=== PATIENT | male | born 1945 | race Caucasian/White ===

== ENCOUNTER 2019-06-23 22:24 | Inpatient (IN) | payer MEDICARE, BC ==
[~2019-06-23] VITALS: Ht 177.8 cm; Wt 109.4 kg
[2019-06-23] MEDS ORDERED: DONEPEZIL HCL10 MG PO (22:39)
[2019-06-23] MEDS ORDERED: FERROUS SULFAT325 MG PO (22:40)
[2019-06-23] MEDS ORDERED: NEURONTIN 300300 MG PO (22:40)
[2019-06-23] MEDS ORDERED: SCOT-TUSSI10 MG/5 ML PO (22:42)
[2019-06-23] MEDS ORDERED: MUCINEX600 MG PO ×2 (22:43→22:44)
[2019-06-23] MEDS ORDERED: IPRAT-ALBUT 0.5-3 ML UPD ×2 (22:46→22:47)
[2019-06-23] MEDS ORDERED: HYTRIN5 MG PO (22:48)
[2019-06-23] MEDS ORDERED: ZOLOFT50 MG PO (22:48)
[2019-06-23] MEDS ORDERED: NAMENDA10 MG PO (22:48)
[2019-06-23] MEDS ORDERED: DIOVAN80 MG PO (22:49)
--- NOTE | 2019-06-23 23:41 | NUR ---
PATIENT ARRIVED AT 2230 FROM [facility] FOR SEXUALLY INAPRPIATE BEHAVIOR WITH STAFF AND RESIDENTS, VS T 97.1, BP 124/64, P 67, R 22, O2 98%, WT 233.2,. PATIENT IS ALERT AND ORIENTED TO PERSON, PLACE AND TIME, PATIENT STATES THAT THE STAFF AT [facility] IS LIEING ON HIM, PATIENT HAS BEEN SEXUALLY INAPP. WITH FEMALE STAFF HERE IN ALF, PATIENT IS ATTENTION SEEKING AND BOUNDARY TESTING FROM THE MOMENT HE ARRIVED ON THE UNIT. DEMANDING RIBS AND ICE CREAM, ICE WATER AND ANYTHING ELSE HE COULD THINK OF, PATIENT DID SIGN ADMISSION PAPERWORK AND ANSWERS ALL QUESTIONS FOR ADMIT FROM THIS MALE NURSE. PHYSICIAN AWARE OF ADMIT, TANNER PINON CALLED AND CODE WORD IS 'CURLY' CODE STATUS IS DNR PER [facility]. WILL CONTINUE TO MONITOR.
[2019-06-24 01:20] VITALS: BP 124/64; BMI 33.5
[2019-06-24 02:00] LABS: APPEARANCE CLEAR (CLEAR); BILIRUBIN NEGATIVE (NEGATIVE); COLOR YELLOW (YELLOW); GLUCOSE NEGATIVE (NEGATIVE); KETONE NEGATIVE (NEGATIVE); NITRITE NEGATIVE (NEGATIVE); PROTEIN NEGATIVE (NEGATIVE); SPECIFIC GRAVITY 1.015 (1.005-1.020); UROBILINOGEN NORMAL (NORMAL)
[2019-06-24 08:24] LABS: ALBUMIN 3.3 g/dL (3.4-5.0); ANION GAP 10.7 mmol/L (8-16); BILIRUBIN - TOTAL 0.37 mg/dL (0.2-1.3); CARBON DIOXIDE 26.1 mmol/L (21.0-32.0); CHOL - HDL RATIO 4.7 ratio (2.3-4.9); CREATININE - SERUM 1.3 mg/dL (0.6-1.3); HEMATOCRIT 35.9 % (42.0-54.0); HEMOGLOBIN 12.7 g/dL (13.5-17.5); LDL-HDL RATIO 2.9 ratio (1.5-3.5); LYMPHOCYTES 33.3 % (15-50); MCH 32.2 pg (26.0-34.0); MCHC 35.4 g/dL (31.0-37.0); MCV 90.9 fL (80.0-100.0); MEAN PLATELET VOLUME 10.4 fL (7.4-10.4); NEUTROPHILS 56.7 % (40-80); PLATELET COUNT 143 10x3/uL (130-400); POTASSIUM - SERUM 3.8 mmol/L (3.5-5.1); PROTEIN - SERUM 6.8 g/dL (6.4-8.2); RBC 3.95 10x6/uL (4.20-6.10); THYROID STIMULATING HORMONE 0.97 uIU/mL (0.36-3.74); WBC 7.7 10x3/uL (4.8-10.8)
[2019-06-24 09:53] VITALS: BP 133/55
--- NOTE | 2019-06-24 11:37 | NUR ---
B) The patient is awake and alert, he ambulates independently. He is conversing with another patient in the day room with staff present he has not been showing any sexually inappropriate behavior at this time. I) Provide prescribed meds. R) The patient is compliant with meds. P) Continue POC.
[2019-06-24 14:34] VITALS: Ht 177.8 cm; Wt 109.4 kg
--- NOTE | 2019-06-24 17:41 | NUR ---
PT DID NOT MAKE IT TO THE RESTROOM THIS SHIFT. SOILED CLOTHES AND TOLD NURSE AND TECH THAT HE COULD NOT CLEAN HIMSELF UP. TECH AND NURSE ENCOURAGED PT ON MULTIPLE TRYS TO CLEAN HIMSELF UP. PT EVENTUALLY DID CLEAN HIMSELF UP. NO MORE EPISODES NOTED AT THIS TIME.
--- NOTE | 2019-06-24 21:50 | NUR ---
B.) PT IS ALERT AND ORIENTED X4. PT IS ABLE TO AMBULATE WITHOUT ASSISTANCE. HE IS ABLE TO MAKE HIS NEEDS KNOWN. I.) REDIRECT IF NEEDED. R.) EASY TO REDIRECT. P.) WILL CONTINUE TO MONITOR.
[2019-06-25 02:34] VITALS: BP 131/63
[2019-06-25 07:12] LABS: RAPID PLASMA REAGIN Non Reactive (Non Reactive)
[2019-06-25 09:03] VITALS: BP 144/62
--- NOTE | 2019-06-25 12:38 | PSY ---
PATIENT NAME:JANELL PINON MEDICAL RECORD: [id number] : 47 LOCATION:[facility] ADMISSION DATE: 06/23/19 ACCOUNT: [id number] PSYCHIATRIC EVALUATION DATE OF EVALUATION: 06/24/19 IDENTIFYING DATA: The patient is 74 years old and he is admitted to the hospital on a voluntary basis. CHIEF COMPLAINT: Sexually inappropriate behavior. HISTORY OF PRESENT ILLNESS: The patient lives in the [facility] in [place], [place]. They referred him to us because of sexually inappropriate behavior with staff and residents. At this point, I do not have information about what he did specifically and when asked about this in what would say as nonjudgmental and neutral manner as possible, he becomes angry and says he has never done anything inappropriate and that they are lying about him at the [facility]. The patient cannot tell me specifically who is lying and even more importantly why they would make up such lies about him, but he angrily insists that they are doing so. Interestingly, when he arrived here last evening about 10:30, he was sexually inappropriate, demanding, and agitated. The patient does have a history of bipolar disorder, which he is not forthcoming and giving details on. He apparently is mad because I asked about the sexually inappropriate behavior. He denies that he would hurt himself or others. He denies psychotic symptoms. PAST MEDICAL HISTORY: Significant for hypertension, anemia. PAST PSYCHIATRIC HISTORY: Significant for an established diagnosis of dementia as well as a reported history of bipolar disorder. FAMILY HISTORY: Unknown. SOCIAL HISTORY: The patient is and has adult children. He denies a history of drug or alcohol abuse. He denies cigarette smoking. MENTAL STATUS EXAMINATION: The patient is awake, alert and oriented to person and place and somewhat to time and situation. His mood is angry. His affect is constricted. Thought processes are circumstantial and at times actively disorganized. His memory, concentration, and abstraction abilities could not be tested because of his anger, but they are deemed to be impaired based upon the context of the interaction. He does again denied that he is wanting to hurt himself or others as well as auditory or visual hallucinations. ASSETS: Supportive family members. LIABILITIES: Limited insight. DIAGNOSTIC IMPRESSION: AXIS I: 1. Major neurocognitive disorder of the Alzheimer's type with behavioral disturbances. 2. Bipolar disorder, manic by history. AXIS II: Deferred. AXIS III: Hypertension and anemia. AXIS IV: Moderate psychosocial stressors. AXIS V: Global assessment of functioning is 40. PLAN: At this time, the patient is admitted to the hospital secondary to sexually inappropriate behavior at the [facility]. The behaviors are likely related to a combination of him being disinhibited by a dementing illness as well as a probable underlying mood disorder. He will be treated with memory enhancing medications as well as mood stabilizing medications as deemed appropriate based upon how things evolve as his hospital stay here progresses. TRANSINT:[id number] Voice Confirmation ID: [id number] DOCUMENT ID: [id number] TYLER RANDOLPH MD at 1238 CC: [id number] DICTATION DATE: 06/24/19 1545 GLASS CALIBRATOR: 06/24/19 1638 ADM IN [facility] [address] [id number]
--- NOTE | 2019-06-25 13:31 | NUR ---
The patient is awake and alert, he has not shown any sexually inappropriate behavior he took a nap in the day room. He is sitting up socializing with patients. He is able to ambulate independently. Provide prescribed meds. The patient is compliant with meds and unit milieu.
[2019-06-25 20:10] VITALS: BP 116/48
--- NOTE | 2019-06-25 23:00 | NUR ---
B.) PT IS SEXUALLY INAPPROPRIATE WITH STAFF AND PEERS. HE IS AGGITATING OTHER PATIENTS AND ATTEMPTS TO SOWING DISCHORD WITH PEERS. PHYSICALLY COMBATIVE WITH STAFF. INTRUSIVE WITH STAFF. OVERLY DRAMATIC AND NARCISSISTIC. I.) PROVIDED PM MEDICATIONS. REDIRECT OFTEN. DECREASE STIMULATION. R.) COMPLIANT WITH MEDICATIONS. RESISTS REDIRECTION. P.) WILL CONTINUE TO MONITOR.
--- NOTE | 2019-06-26 00:44 | NUR ---
PT IS IN HIS ROOM WITH THE DOOR SHUT, TALKING TO PEOPLE THAT ARE NOT PRESENT. PT DIFFICULT TO REDIRECT. WILL CONTINUE TO MONITOR.
[2019-06-26 08:00] VITALS: BP 120/64
--- NOTE | 2019-06-26 08:36 | NUR ---
PT IS VERY SEXUALLY INAPPROPRIATE WITH STAFF AND PEERS. HE IS AGITATING OTHER PTS AND ATTEMPTS TO BE LITTLE STAFF AND PEERS. PHYSICALLY COMBATIVE WITH STAFF. INTRUSIVE WITH STAFF. PT STATES " YOU HAVE A NICE RACK TO THIS NURSE." NURSE EXPLAINED THAT IS SEXUALLY INAPPROPRIATE, PT STATED " I WILL SHOW YOU SEXUALLY INAPPROPRIATE." PT HARD TO REDIRECT AT THIS TIME. PT CALLING OTHER PTS STUPID AND HETTING THE WHOLE UNIT WORKED UP. HALDOL 2MG IM AND ATIVAN 0.5 MG IM GIVEN PER ORDER. WILL CONTINUE TO MONITOR.
--- NOTE | 2019-06-26 09:30 | NUR ---
PRN MEDS EFFECTIVE AT THIS TIME. WILL CONTINUE TO MONITOR.
--- NOTE | 2019-06-26 11:48 | PN ---
PATIENT:JANELL PINON MEDICAL RECORD: [id number] LOCATION:[facility] ADMISSION DATE: 06/23/19 PROGRESS NOTE DATE OF SERVICE: 06/25/2019 SUBJECTIVE: The patient's case was discussed with staff. He has no new complaint. OBJECTIVE: The patient is in good behavioral control. He is impaired cognitively more than I anticipated. He has had no sexually inappropriate behavior today. ASSESSMENT: Dementia. PLAN: The patient has some degree of anxiety. I am going to treat him with BuSpar on a scheduled basis to address this. His long-term prognosis is guarded. TRANSINT:[id number] Voice Confirmation ID: [id number] DOCUMENT ID: [id number] TYLER RANDOLPH MD at 1148 CC: [id number] DICTATION DATE: 06/25/19 1353 DIRECTOR PUBLIC: 06/25/19 1436 ADM IN [place] [id number] [place] [id number]
[2019-06-26 20:00] VITALS: BP 144/69
--- NOTE | 2019-06-27 01:58 | NUR ---
B.) PT IS ALERT AND ORIENTED TO SELF. HE HAS POOR INSIGHT INTO HIS SITUATION. HE APPEARS WITHDRAWN. HE IS RECEIVED IN THE DAYROOM ASLEEP WITH NO SIGNS OF DISTRESS. HE IS ABLE TO MAKE HIS NEEDS KNOWN. I.) PROVIDED PM MEDICATIONS. R.) COMPLIANT WITH ALL MEDICATIONS. P.) WILL CONTINUE TO MONITOR.
--- NOTE | 2019-06-27 07:30 | NUR ---
Rec'd pt sitting in chair by nurses station. Awake and alert x 3. Calm and cooerative with assessment. Prescribed meds provided as ordered. med complaint. No behaviors noted at this time. Will cpoc.
[2019-06-27 10:52] VITALS: BP 115/56
--- NOTE | 2019-06-27 22:49 | NUR ---
RECEIVED IN PATIENT ROOM. GETTING READY FOR BED. CALM AND COOPERATIVE WITH CARE AND ASSESSMENT. NO SEXUALLY INAPPROPRIATE BEHAVIOR THIS EVENING. REDIRECT AND REORIENT NEEDED. RESTING IN BED WITH EYES CLOSED AT THIS TIME. CONTINUE PLAN OF CARE.
[2019-06-28 00:03] VITALS: BP 136/60
[2019-06-28 08:24] VITALS: BP 98/65
--- NOTE | 2019-06-28 13:49 | NUR ---
PT IS AWAKE AND ALERT TO PERSON ONLY. CALM AND COOPERATIVE WITH ASSESSMENT. PRESCRIBED MEDS PROVIDED ORDERED. MED COMPLIANT. REDIRECT AND REORIENT NEEDED. FALL PRECAUTIONS IN PLACE. WILL CPOC.
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
[2019-06-28 20:48] VITALS: BP 134/68
--- NOTE | 2019-06-28 21:13 | NUR ---
RECEIVED IN PATIENT ROOM. GETTING READY FOR BED. CALM AND COOPERATIVE WITH CARE AND ASSESSMENT. NO SEXUALLY INAPPROPRIATE BEHAVIORS. REDIRECT AND REORIENT NEEDED. RESTING IN BED WITH EYES OPEN AT THIS TIME. CONTINUE PLAN OF CARE.
[2019-06-29 07:00] VITALS: BP 174/87
--- NOTE | 2019-06-29 08:21 | NUR ---
REC'D PT SITTING IN HALLWAY SOCIALIZING WITH PEERS. CALM AND COOPERATIVE WITH ASSESSMENT. PRESCRIBED MEDS PROVIDED ORDERED. MED COMPLIANT. NO BEHAVIORS NOTED AT THIS TIME. REDIRECT AND REORIENT NEEDED. FALL PRECAUTIONS IN PLACE. WILL CPOC.
--- NOTE | 2019-06-29 13:45 | PN ---
PATIENT:JANELL PINON MEDICAL RECORD: [id number] LOCATION:[facility] ADMISSION DATE: 06/23/19 PROGRESS NOTE DATE OF SERVICE: 06/28/2019 SUBJECTIVE: The patient's case was discussed with staff. He has no new complaint. OBJECTIVE: The patient has not been sexually inappropriate or aggressive with staff. He is partially oriented. He has actually been pleasant and interactive. ASSESSMENT: Dementia. PLAN: Current medicines will be maintained. TRANSINT:[id number] Voice Confirmation ID: [id number] DOCUMENT ID: [id number] TYLER RANDOLPH MD at 1345 CC: [id number] DICTATION DATE: 06/28/191946 RISK CONSULTING TREASURY DIRECTOR: 06/28/192216 ADM IN [place] [address] [place] [address]
--- NOTE | 2019-06-29 15:39 | NUR ---
Nutrition Follow-up: Diet: Regular PO intake: ~68% x 9 meals Last BM: 06/25/19 x 4 days. Wt: 235# (06/26/19); Admit wt: 234# (06/24/19) Meds reviewed. Noted A1c of 6.3. Consider diabetic diet if blood sugar trending high. RD Following.
--- NOTE | 2019-06-29 18:08 | NUR ---
PT WAS VERY SEXUAL INAPPROPRIATE WITH STAFF AT THIS TIME. PT STATED "WELL IM GOING TO GIVE YOUR A SHOT." WANDERING, CLAPPING HANDS AND BEATING ON THE TABLE. UNABLE TO REDIRECT A PATIENT. ATIVAN 0.5 MG AND HALDOL 2 MG PO FOR ANXIETY AND INAPPROPRIATE BEHAVIOR. WILL REASSESS Q 1 HOUR FOR SAFETY.
--- NOTE | 2019-06-29 20:27 | NUR ---
RECEIVED IN PATIENT ROOM. RESTING IN BED WITH EYES OPEN. CALM AND COOPERATIVE WITH CARE AND ASSESSMENT. NO SEXUALLY INAPPROPRIATE BEHAVIOR THIS EVENING. REDIRECT AND REORIENT NEEDED. RESTING IN BED WITH EYES OPEN AT THIS TIME. CONTINUE PLAN OF CARE.
[2019-06-29 22:59] VITALS: BP 139/63
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
[2019-06-30 08:00] VITALS: BP 118/68
--- NOTE | 2019-06-30 08:55 | PN ---
PATIENT:JANELL PINON MEDICAL RECORD: [id number] LOCATION:[facility] ADMISSION DATE: 06/23/19 PROGRESS NOTE DATE OF SERVICE: 06/29/2019 SUBJECTIVE: The patient's case was discussed with staff. He has no new complaint. OBJECTIVE: The patient is in good behavioral control. He has poor insight about his condition. He has not been sexually inappropriate for the past 2 days. ASSESSMENT: No change in diagnoses. PLAN: Current medicines have been reviewed and will be maintained. If this level of improvement continues, I will transfer him back to the [facility]. TRANSINT:[id number] Voice Confirmation ID: [id number] DOCUMENT ID: [id number] TYLER RANDOLPH MD at 0855 CC: [id number] DICTATION DATE: 06/29/19 1634 NURSE EMERGENCY ROOM: 06/30/19 0833 ADM IN [place] [address] [place] [id number]
--- NOTE | 2019-06-30 11:44 | NUR ---
APPETITE GOOD FOR B'FAST, NO FURTHER EPISODES OF INAPPROPRIATE BEHAVIOR NOTED AT THIS TIME, PT CALM AND COOPERATIVE. MEDS ADMIN PER ORDERS WITH COMPLETE MED COMPLIANCE NTOED.
--- NOTE | 2019-06-30 19:22 | NUR ---
B) Patient is alert and oriented to person, place and time. Calm and cooperative this shift, I) administered scheduled medications as ordered, monitopred for safety R) Mediation compliant, resting quietly in his bed now, P) Continue plan of care.
--- NOTE | 2019-06-30 22:00 | NUR ---
RECEIVED IN DAYROOM. SITTING IN A RECLINING CHAIR WITH EYES CLOSED. RESPONDED TO TOUCH. CALM AND COOPERATIVE WITH CARE AND ASSESSMENT. NO SIGNS OF SEXUALLY INAPPROPRIATE BEVAVIOR THIS EVENING. REDIRECT AND REORIENT NEEDED. RESTING IN BED WITH EYES CLOSED AT THIS TIME. CONTINUE PLAN OF CARE
[2019-06-30 22:47] VITALS: BP 140/74
--- NOTE | 2019-07-01 10:00 | NUR ---
RECEIVED PT. IN DINING ROOM AT B'FAST, ALERT, CALM, COOPERATIVE, NO FURTHER EPISODES OF INAPPROPRIATE BEHAVIOR. MEDS ADMIN PER ORDERS WITH COMPLETE MED COMPLIANCE NOTED. CONT POC DIRECTED.
[2019-07-01 15:21] VITALS: BP 132/69
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
[2019-07-01 20:23] VITALS: BP 138/61
--- NOTE | 2019-07-01 23:22 | NUR ---
REC'D PATIENT SITTING IN THE DAYROOM. ALERT AND ORIENTED. POOR INTERACTION WITH OTHERS. APPROPRIATE RESPONSES WHEN TALKING WITH STAFF. ADMINISTER MEDS AND MONITOR COMPLIANCE. OBSERVE FOR SEXUALLY INAPPROPRIATE BEHAVIOR AND REDIRECT NEEDED. MED COMPLIANT. NO INAPPROPRIATE BEHAVIOR OBSERVED. COOPERATIVE WITH STAFF REQUEST. CONTINUE POC AND PROVIDE SAFE ENVIRONMENT.
--- NOTE | 2019-07-02 08:14 | NUR ---
REC'D PT LAYING IN BED WITH EYES CLOSED. NO ACUTE DISTRESS NOTED. PT WAS IN CHAIR AWAITING BREAKFAST. ASSESSMENT COMPLETED AT THAT TIME. PT CAN MAKE NEEDS KNOWN. PT IS ALERT AND ORIENTED TO SELF, TIME. NO INAPPORPRAITE REMARKS NOTED SO FAR. PT AMBULATES. REDIRECT AND REORIENT NEEDED. WILL CONT PLAN OF CARE.
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
[2019-07-02 20:00] VITALS: BP 147/57
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
--- NOTE | 2019-07-03 08:10 | NUR ---
REC'D PT SITTING AWAITING ON BREAKFAST. PT WAS CLAPPING HIS HANDS AND ASKING FOR BREAKFAST. PT WAS REPORTED TO BE INAPPROPRIATE WITH STAFF ON THE INDUSTRIAL HYGIENE MANAGER. WILL CONT PLAN OF CARE.
[2019-07-03 10:36] VITALS: BP 103/69
--- NOTE | 2019-07-03 13:21 | PN ---
PATIENT:JANELL PINON MEDICAL RECORD: [id number] LOCATION:[facility] ADMISSION DATE: 06/23/19 PROGRESS NOTE DATE OF SERVICE: 07/02/2019 SUBJECTIVE: The patient's case was discussed with staff. He has no new complaint. OBJECTIVE: The patient is in good behavioral control with limited insight about his condition. ASSESSMENT: Dementia. PLAN: Supportive and educational interventions were made. Long-term prognosis is guarded. TRANSINT:[id number] Voice Confirmation ID: [id number] DOCUMENT ID: [id number] TYLER RANDOLPH MD at 1321 CC: [id number] DICTATION DATE: 07/02/19 1159 FACILITY MAINTENANCE TECHNICIAN: 07/02/19 1304 ADM IN [address] [address]
--- NOTE | 2019-07-03 19:46 | NUR ---
RECEIVED IN BEDROOM. LAYING IN BED WITH EYES OPEN. CALM AND COOPERATIVE WITH CARE AND ASSESSMENT. NO SEXUALLY APPROPRIATE BEVAVIOR THIS PM. REDIRECT AND REORIENT NEEDED. CONTINUES TO LAY IN BED WITH EYES OPEN. CONTINUE PLAN OF CARE
--- NOTE | 2019-07-04 11:45 | NUR ---
PATIENT IS AWAKE AND ORIENTED TO SELF. CALM AND COOPERATIVE WITH CARE AND ASSESSMENT. NO INAPPROPRIATE SEXUAL BEHAVORS NOTED. COMPLIANT WITH MEDICATIONS. REDIRECT AND REORIENT NEEDED. CONTINUE PLAN OF CARE.
--- NOTE | 2019-07-04 12:29 | PN ---
PATIENT:JANELL PINON MEDICAL RECORD: [id number] LOCATION:[facility] ADMISSION DATE: 06/23/19 PROGRESS NOTE DATE OF SERVICE: 07/03/2019 SUBJECTIVE: The patient's case was discussed with staff. He has no new complaint. OBJECTIVE: The patient is not sleeping very well. He has otherwise done reasonably well and has not been problematic with regard to touching other residents. ASSESSMENT: Dementia. PLAN: The patient will be given a higher dose of gabapentin. Gabapentin is being used to treat his behavioral disinhibition. I am also going to give him some trazodone to assist with sleep consolidation. TRANSINT:[id number] Voice Confirmation ID: [id number] DOCUMENT ID: [id number] TYLER RANDOLPH MD at 1229 CC: [id number] DICTATION DATE: 07/03/19 1350 SHEAR GRINDER OPERATOR: 07/03/19 2128 ADM IN [place] [address] [place] [address]
[2019-07-04 22:02] VITALS: BP 130/62
[2019-07-05 08:00] VITALS: BP 103/72
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
--- NOTE | 2019-07-05 10:00 | NUR ---
PATIENT COMPLIANT WITH MORNING MEDS.
--- NOTE | 2019-07-05 10:40 | NUR ---
PATIENT INAPPROPRIATE, ATTEMPTING TO GRAB ACITIVITY DIRECTOR'S BREAST.
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
--- NOTE | 2019-07-05 10:57 | NUR ---
PATIENT IN DINING ROOM DIRECTED. CLAPPING HANDS LOUDLY.
--- NOTE | 2019-07-05 11:38 | NUR ---
PT CONT TO EXHIBIT ANXIETY. LOUDLY CLAPPING AND CALLING OTHER PATIENTS NAMES. ATIVAN 0.5 MG AND HALDOL 2 MG ADMIN PO FOR ANXIETY. YANG. WELL.
--- NOTE | 2019-07-05 12:41 | PN ---
PATIENT:JANELL PINON MEDICAL RECORD: [id number] LOCATION:[facility] ADMISSION DATE: 06/23/19 PROGRESS NOTE DATE OF SERVICE: 07/04/2019 SUBJECTIVE: The patient's case was discussed with staff. He has no new complaint. OBJECTIVE: The patient is in good behavioral control. He has not been sexually inappropriate. ASSESSMENT: Dementia. PLAN: Supportive and educational interventions were made. The patient will be maintained on current medicines. Long-term prognosis is guarded. TRANSINT:[id number] Voice Confirmation ID: [id number] DOCUMENT ID: [id number] TYLER RANDOLPH MD at 1241 CC: [id number] DICTATION DATE: 07/04/19 1321 SENIOR PRINCIPAL ARCHITECT: 07/04/19 1700 ADM IN [place] [id number]
--- NOTE | 2019-07-05 15:32 | NUR ---
Nutrition Follow-up: Diet: Regular PO intake: ~95% average x last 9 meals Last BM: 07/03/19. Wt: 230# (07/03/19); Admit wt: 234# (06/24/19) Labs and meds reviewed Continue current nutrition regimen. RD Following.
--- NOTE | 2019-07-05 20:03 | NUR ---
RECEIVED IN DINING AREA. SITTING AT TABLE SOCIALIZING WITH STAFF AND PEERS. CALM AND COOPERATIVE WITH CARE AND ASSESSMENT. NO SIGNS OF SEXUALLY INAPPROPRIATE BEHAVIORS AT THIS TIME. CONTINUES TO SIT CALMLY AT THIS TIME. CONTINUE PLAN OF CARE
[2019-07-05 22:55] VITALS: BP 155/68
[2019-07-06 08:00] VITALS: BP 153/81
--- NOTE | 2019-07-06 15:58 | PN ---
PATIENT:JANELL PINON MEDICAL RECORD: [id number] LOCATION:[facility] ADMISSION DATE: 06/23/19 PROGRESS NOTE DATE OF SERVICE: 07/05/2019 SUBJECTIVE: The patient's case was discussed with staff. He has no new complaint. OBJECTIVE: The patient is in poor behavioral control. He had several days where he was in good control and was not disruptive or seriously agitated. Today, he is grabbing at staff and trying to grab patients. He is using vulgar and racially charged language and cursing at the staff and other patients. ASSESSMENT: Dementia. PLAN: The patient will be given Geodon to assist with thought disorganization. He has very poor insight about his situation and at this point I am not going to discharge him tomorrow. TRANSINT:[id number] Voice Confirmation ID: [id number] DOCUMENT ID: [id number] TYLER RANDOLPH MD at 1558 CC: [id number] DICTATION DATE: 07/05/19 1251 INDUSTRIAL GARAGE SERVICER: 07/05/19 1419 ADM IN [place] [id number] [place] [id number]
--- NOTE | 2019-07-06 17:51 | NUR ---
PATIENT HAS NAPPED ON AND OFF THIS SHIFT. NO SEXUALLY INAPPROPRIATE BEHAVIOR NOTED. COMPLIANT WITH MEDS. CONT POC DIRECTED.
[2019-07-06 20:30] VITALS: BP 147/62
--- NOTE | 2019-07-07 00:06 | NUR ---
PATIENT IS ALERT AND ORIENTED, MAKES ALL NEEDS KNOWN, WAS NOT SEXUALLY INAPPROPRIATE THIS EVENING. COMPLIANT WITH MEDS. FOLLOW POC
--- NOTE | 2019-07-07 07:01 | NUR ---
PATIENT FOUND SITTING IN THE FLOOR IN HIS ROOM. RELATES HE FELL AND HIT HIS HEAD ON THE BED. FALL UNWITNESSED. URINE WAS NOTED IN THE FLOOR ALTHOUGH PATIENT IS NORMALLY CONTINENT. CODE MUSCLE CALLED AND PATIENT ASSISTED TO BED. NITZA, INSPECTOR CLIP ON SUNGLASSES NOTIFIED AT 0629, PAGED DR AMBROCIO AT 0631 AND SPOKE WITH HER AT 0640 WITH NO ORDERS RECEIVED, SPOKE WITH TANNER PATIENT'S SPOUSE AT 0633. NO VISIBLE INJURIES NOTED OTHER THAN THE SMALL CUT TO TOP OF HEAD. DENIES PAIN OTHER THAN HEAD HURTING.
[2019-07-07 08:51] VITALS: BP 139/63
--- NOTE | 2019-07-07 13:57 | NUR ---
Nutrition Follow-up: Diet: Regular diet PO intake: 100% Last BM: 07/03/19. Wt: 230# (07/03/19); Admit wt: 234# (06/24/19). Meds reviwed, no new labs. Continue current nutrition regimen. Consider bowel regimen. RD following.
--- NOTE | 2019-07-07 14:34 | PN ---
PATIENT:JANELL PINON MEDICAL RECORD: [id number] LOCATION:[facility] ADMISSION DATE: 06/23/19 PROGRESS NOTE DATE OF SERVICE: 07/06/2019 SUBJECTIVE: The patient's case was discussed with staff. He has no new complaint. OBJECTIVE: The patient is in better behavioral control today. He has not been sexually inappropriate, nor has he been vulgar and disruptive in the way he was yesterday. ASSESSMENT: Dementia. PLAN: The patient will be maintained on current medicines. There were changes made to his regimen yesterday, which I think will help if given sufficient time. TRANSINT:[id number] Voice Confirmation ID: [id number] DOCUMENT ID: [id number] TYLER RANDOLPH MD at 1434 CC: [id number] DICTATION DATE: 07/06/19 161 THIRD MILLER: 07/06/19 2249 ADM IN [place] [id number] [place] [id number]
--- NOTE | 2019-07-07 17:33 | NUR ---
B) The patient is awake and alert, he is self propelling in his w/c. He does have a small laceration on the back of his head. He has not shown any inappropriate behavior today. He is pleasant and calm at this time. I) Provide prescribed meds. R) The patient is compliant with meds. P) Continue POC.
[2019-07-07 20:20] VITALS: BP 138/59
--- NOTE | 2019-07-08 00:19 | NUR ---
B) Patient is alert and oriented to person and place, calm and cooperative, I) Administered scheduled medications as ordered, monitored for safety R) Mediation compliant, tends to do less for himself than he can at times, P) Continue plan of care.
[2019-07-08 09:31] VITALS: BP 123/45
--- NOTE | 2019-07-08 10:00 | NUR ---
PT SITTING IN WHEELCHAIR. PT HAD A FALL 07/07/19 EARLY IN THE MORNING. PT DENIES ANY PAIN. PT IS FRIENDLY WITH STAFF AND PEERS. PT IS ALERT AND ORIENTED TO PERSON, PLACE AND TIME. PT IS DISORIENTED TO SITUTION. NO INAPPROPRIATE BEHAVIOR NOTED. PT CAN MAKE NEEDS KNOWN. PT COMPLIANT WITH MEDS, VITALS AND ASSESSMENTS. WILL CONT PLAN OF CARE.
--- NOTE | 2019-07-08 15:57 | PN ---
PATIENT:JANELL PINON MEDICAL RECORD: [id number] LOCATION:[facility] ADMISSION DATE: 06/23/19 PROGRESS NOTE DATE OF SERVICE: 07/07/2019 SUBJECTIVE: The patient's case was discussed with staff. He has no new complaint. OBJECTIVE: The patient is in good behavioral control with limited insight about his condition. He is tolerating his medicines well. ASSESSMENT: Dementia. PLAN: The patient has had no sexually inappropriate behavior today. I am going to increase the dose of his Zoloft and BuSpar and actually his Neurontin. TRANSINT:[id number] Voice Confirmation ID: [id number] DOCUMENT ID: [id number] TYLER RANDOLPH MD at 1557 CC: [id number] DICTATION DATE: 07/07/19 1800 COMPUTER TECHNOLOGY TEACHER: 07/07/19 1850 ADM IN [place] [id number] [place] [address]
[2019-07-08 19:50] VITALS: BP 121/47
--- NOTE | 2019-07-09 03:29 | NUR ---
B) Patient is alert and oriented to person and place, calm and cooperative this shift I) Administered scheduled medications as ordered, monitored for safety R) Medication compliant, sleeping soundly in his bed now, P) Continue plan of care.
[2019-07-09 08:29] VITALS: BP 134/74
--- NOTE | 2019-07-09 12:38 | PN ---
PATIENT:JANELL PINON MEDICAL RECORD: [id number] LOCATION:[facility] ADMISSION DATE: 06/23/19 PROGRESS NOTE DATE OF SERVICE: 07/08/2019 SUBJECTIVE: The patient's case was discussed with staff. He has no new complaint. OBJECTIVE: The patient has been in better behavioral control today. He has not been seriously agitated. ASSESSMENT: Dementia. PLAN: Current medicines have been reviewed and will be maintained. Long-term prognosis is guarded. TRANSINT:[id number] Voice Confirmation ID: [id number] DOCUMENT ID: [id number] TYLER RANDOLPH MD at 1238 CC: [id number] DICTATION DATE: 07/08/19 1616 DRY COLOR TESTER: 07/08/192005 ADM IN [facility] [address] [place] [address]
--- NOTE | 2019-07-09 15:02 | NUR ---
The patient put himself on the couch and he stayed there for several hours. He then asked for help to get up even though staff asked him not to get on the couch. He is not showing any sexually inappropriate behaviors today. Provide prescribed meds. The patient is compliant with meds. Continue POC.
[2019-07-09 20:00] VITALS: BP 133/52
--- NOTE | 2019-07-10 00:14 | NUR ---
B) patient is alert and oriented to person, and place, difficult at times, refusing to do for himself when he is able to at times, I) Administered scheduled medications as ordered, redirected as needed,monitored for safety R) Mediation compliant, quiet this shift P) Continue plan of care.
[2019-07-10 08:00] VITALS: BP 131/53
--- NOTE | 2019-07-10 15:41 | NUR ---
PATIENT HAS BEEN CALM THIS SHIFT WITH NO INAPPROPRIATE BEHAVIORS NOTED. MEDS ADMIN PER ORDERS WITH COMPLETE MED COMPLIANCE NOTED. CONT POC DIRECTED.
--- NOTE | 2019-07-10 20:16 | NUR ---
RECEIVED IN DAYROOM. RESTING IN BED WITH EYES CLOSED. CALM AND COOPERATIVE WITH CARE AND ASSESSMENT. NO SIGNS OF SEXUALLY INAPPROPRIATE BEHAVIORS. REDIRECT AND REORIENT NEEDED. RESTING IN BED EYES OPEN AT THIS TIME. CONTINUE PLAN OF CARE
[2019-07-10 20:44] VITALS: BP 146/52
[2019-07-11 09:36] VITALS: BP 136/56
--- NOTE | 2019-07-11 15:13 | PN ---
PATIENT:JANELL PINON MEDICAL RECORD: [id number] LOCATION:[facility] ADMISSION DATE: 06/23/19 PROGRESS NOTE DATE OF SERVICE: 07/09/2019 SUBJECTIVE: The patient's case was discussed with staff. He has no new complaint. OBJECTIVE: The patient is in good behavioral control. He is tolerating his medicines well. He has not been sexually inappropriate today. ASSESSMENT: Dementia. PLAN: Current medicines have been reviewed. Long-term prognosis is guarded. I anticipate he can be transitioned out of the hospital soon. TRANSINT:[id number] Voice Confirmation ID: [id number] DOCUMENT ID: [id number] TYLER RANDOLPH MD at 1513 CC: [id number] DICTATION DATE: 07/09/19 1307 CLIENT SERVER PROGRAMMER: 07/09/19 1433 ADM IN [facility] [address] [place] [address]
--- NOTE | 2019-07-11 15:13 | PN ---
PATIENT:JANELL PINON MEDICAL RECORD: [id number] LOCATION:[facility] ADMISSION DATE: 06/23/19 PROGRESS NOTE DATE OF SERVICE: 07/10/2019 SUBJECTIVE: The patient's case was discussed with staff. He has no new complaint. OBJECTIVE: The patient is in good behavioral control with limited insight. ASSESSMENT: Dementia. PLAN: Current medicines have been reviewed and will be maintained. Long-term prognosis is guarded. TRANSINT:[id number] Voice Confirmation ID: [id number] DOCUMENT ID: [id number] TYLER RANDOLPH MD at 1513 CC: [id number] DICTATION DATE: 07/10/19 1438 UNDERCOLLAR BASTER: 07/10/19 1555 ADM IN [place] [id number] [place] [address]
--- NOTE | 2019-07-11 15:27 | NUR ---
ALERT, CALM, COOPERATIVE, NO INAPPROPRIATE BEHAVIOR NOTED, MED COMPLIANT, CONT POC DIRECTED.
[2019-07-11 23:37] VITALS: BP 129/51
--- NOTE | 2019-07-12 00:58 | NUR ---
RECEIVED IN PATIENT ROOM. RESTING IN BED WITH EYES OPEN. READING BOOK. CALM AND COOPERATIVE WITH CARE AND ASSESSMENT. NO SEXUALLY INAPPROPRIATE BEHAVIORS. REDIRECT AND REORIENT NEEDED. RESTING IN BED WITH EYES CLOSED AT THIS TIME. CONTINUE PLAN OF CARE.
[2019-07-12 09:25] VITALS: BP 112/52
--- NOTE | 2019-07-12 13:30 | NUR ---
PATIENT IS AWAKE AND ALERT, CALM AND COOPERATIVE WITH CARE AND ASSESSMENT. COMPLIANT WITH MEDICATIONS. NO INAPPROPRIATE BEHAVIORS NOTED. CONTINUE POC.
--- NOTE | 2019-07-12 15:04 | PN ---
PATIENT:JANELL PINON MEDICAL RECORD: [id number] LOCATION:[facility] ADMISSION DATE: 06/23/19 PROGRESS NOTE DATE OF SERVICE: 07/11/2019 SUBJECTIVE: The patient's case was discussed with staff. He has no new complaint. OBJECTIVE: The patient has not been aggressive. He is in good behavioral control. ASSESSMENT: Dementia. PLAN: Current medicines have been reviewed and will be maintained. I anticipate he can be transitioned out of the hospital soon. TRANSINT:[id number] Voice Confirmation ID: [id number] DOCUMENT ID: [id number] TYLER RANDOLPH MD at 1504 CC: [id number] DICTATION DATE: 07/11/19 1547 STARCH MANGLE TENDER: 07/11/19 1858 ADM IN [place] [id number] [place] [address]
[2019-07-12 21:01] VITALS: BP 140/70
--- NOTE | 2019-07-12 22:16 | NUR ---
RECEIVED IN PATIENT ROOM. SITTING UP IN BED AND READING A BOOK. CALM AND COOPERTIVE WITH CARE AND ASSESSMENT. NO SEXUALLY INAPPROPRIATE BEHAVIOR. REDIRECT AND REORIENT NEEDED. RESTING IN BED WITH EYES CLOSED AT THIS TIME. CONTINUE PLAN OF CARE.
--- NOTE | 2019-07-13 07:30 | NUR ---
The patient is awake and he is alert. He did have a loose BM in his room while he was showering. He did have a shower and slid to the floor with Selina Patton RN assist, he did not fall. Two nurses assisted him to the w/c and dressed him. He is calm, he has not shown any aggression or sexually inappropriate behavior today. Provide prescribed meds. The patient is compliant with meds. He is packed and ready to d/c, faxed paperwork and made a hard copy of d/c orders and med rec. Continue discharge.
[2019-07-13 09:00] VITALS: BP 136/61
[2019-07-13] MEDS ORDERED: BUSPAR 15 MG TA15 MG PO (09:26)
[2019-07-13] MEDS ORDERED: GABAPENTIN100 MG PO (09:27)
[2019-07-13] MEDS ORDERED: DESERYL PO (09:27)
[2019-07-13] MEDS ORDERED: ZOLOFT50 MG PO (09:27)
[2019-07-13] MEDS ORDERED: VITAMIN D5000 UNIT PO (09:28)
[2019-07-13] MEDS ORDERED: GEODON20 MG PO (09:28)
[2019-07-13] MEDS ORDERED: VITAMIN B-12250 MC3 PO (09:29)
--- NOTE | 2019-07-13 12:20 | NUR ---
The drivers from [facility] are here to pickling tank operator the patient. They assisted him to a w/c and onto their van. He is now d/c'd off of the unit.
--- NOTE | 2019-07-13 12:33 | PN ---
PATIENT:JANELL PINON MEDICAL RECORD: [id number] LOCATION:[facility] ADMISSION DATE: 06/23/19 PROGRESS NOTE DATE OF SERVICE: 07/12/2019 SUBJECTIVE: The patient's case was discussed with staff. He has no new complaint. OBJECTIVE: The patient is in good behavioral control with limited insight about his situation. ASSESSMENT: Dementia. PLAN: The patient will be transitioned out of the hospital tomorrow. He has had at least 3 days without any agitated or sexually inappropriate behavior. Followup will be with his primary care senior care physician. TRANSINT:[id number] Voice Confirmation ID: [id number] DOCUMENT ID: [id number] TYLER RANDOLPH MD at 1233 CC: [id number] DICTATION DATE: 07/12/19 160 AUTOMOBILE DRIVERS: 07/12/19 2154 ADM IN [facility] [address] [place] [address]
--- NOTE | 2019-07-14 15:32 | PN ---
PATIENT:JANELL PINON MEDICAL RECORD: [id number] LOCATION:[facility] ADMISSION DATE: 06/23/19 PROGRESS NOTE DATE OF SERVICE: 07/13/2019 SUBJECTIVE: The patient's case was discussed with staff. He has no new complaint. OBJECTIVE: The patient has not been sexually inappropriate or aggressive for the better part of the week. He will be transitioned out of the hospital today. Followup will be with his primary care physician and the [facility]. TRANSINT:[id number] Voice Confirmation ID: [id number] DOCUMENT ID: [id number] TYLER RANDOLPH MD at 1532 CC: [id number] DICTATION DATE: 07/13/19 1250 SETUP TECHNICIAN: 07/13/192124 DIS IN 07/13/19 [facility] [address] [place] [address]
== END 2019-07-13 12:25 | DRG 57 ==
LOC: D.PSYCH 22:24
PROVIDERS: ADMIT Psychiatry & Neurology Psychiatry; ATTEND Psychiatry & Neurology Psychiatry
DX: G30.1 Alzheimer's disease with late onset (principal); F02.81 Dementia in other diseases classified elsewhere, unspecified severity, with behavioral disturbance; I48.20 Chronic atrial fibrillation, unspecified; I10 Essential (primary) hypertension; D51.3 Other dietary vitamin B12 deficiency anemia; E78.5 Hyperlipidemia, unspecified; E55.9 Vitamin D deficiency, unspecified; N40.0 Benign prostatic hyperplasia without lower urinary tract symptoms; F41.9 Anxiety disorder, unspecified; K21.9 Gastro-esophageal reflux disease without esophagitis; D50.8 Other iron deficiency anemias; E11.40 Type 2 diabetes mellitus with diabetic neuropathy, unspecified